=== PATIENT | female | born 1970 | race Two or more races ===

== ENCOUNTER 2020-08-19 11:30 | Inpatient (IN) | payer OTHER ==
[~2020-08-19] VITALS: Ht 152.4 cm; Wt 55.8 kg
[2020-08-19] MEDS ORDERED: WELLBUTRIN XL300 MG PO (13:46)
[2020-08-19] MEDS ORDERED: CLONAZEPAM0.5 MG PO (13:47)
[2020-08-19] MEDS ORDERED: RESTORIL30 MG PO (13:47)
[2020-08-26] MEDS ORDERED: CYCLOBENZAPRINE10 MG (09:36)
[2020-08-26] MEDS ORDERED: SULFASALAZINE500 MG (09:36)
[2020-08-26] MEDS ORDERED: MONTELUKAST SOD10 MG (09:36)
[2020-08-26] MEDS ORDERED: LEFLUNOMIDE20 MG (09:36)
== END 2020-09-02 14:02 | disposition home or self-care (01) | DRG 331 ==
LOC: O/R 08-26 08:28 → SURH 08-26 11:30
PROVIDERS: ADMIT Colon & Rectal Surgery; ATTEND Colon & Rectal Surgery
PROC: 0DTP4ZZ Resection of Rectum, Percutaneous Endoscopic Approach (ICD-10-PCS; 2020-08-26)
PROC: 07BC4ZX Excision of Pelvis Lymphatic, Percutaneous Endoscopic Approach, Diagnostic (ICD-10-PCS; 2020-08-26)
PROC: 0DJD8ZZ Inspection of Lower Intestinal Tract, Via Natural or Artificial Opening Endoscopic (ICD-10-PCS; 2020-08-26)
PROC: 0DBN4ZZ Excision of Sigmoid Colon, Percutaneous Endoscopic Approach (ICD-10-PCS; principal; 2020-08-26 12:30)
DX: C20 Malignant neoplasm of rectum (principal); F32.9 Major depressive disorder, single episode, unspecified; F41.9 Anxiety disorder, unspecified; E87.6 Hypokalemia; R15.9 Full incontinence of feces

== ENCOUNTER 2020-08-24 06:15 | Day surgery (SDC) | payer OTHER ==
[~2020-08-24 06:15] MED LIST: CLONAZEPAM0.5 MG PO; RESTORIL30 MG PO; WELLBUTRIN XL300 MG PO
== END 2020-08-24 10:00 | disposition home or self-care (01) ==
LOC: AMB-ENDOS 06:15
PROVIDERS: ATTEND Colon & Rectal Surgery
DX: K62.89 Other specified diseases of anus and rectum (principal); K64.8 Other hemorrhoids; Z20.822 Contact with and (suspected) exposure to COVID-19

== ENCOUNTER 2020-10-22 12:21 | Emergency (ER) | payer OTHER ==
[~2020-10-22] VITALS: Ht 152.4 cm; Wt 54.4 kg
[~2020-10-22 12:21] MED LIST changes: +CYCLOBENZAPRINE10 MG; +LEFLUNOMIDE20 MG; +MONTELUKAST SOD10 MG; +SULFASALAZINE500 MG
== END 2020-10-22 18:00 | disposition home or self-care (01) ==
LOC: ER 12:21
DX: K94.03 Colostomy malfunction (principal); R10.84 Generalized abdominal pain; K94.09 Other complications of colostomy

== ENCOUNTER 2020-11-23 07:27 | Outpatient (CLI) | payer OTHER | END 2020-11-23 07:32 | disposition home or self-care (01) | LOC: RX STUDY 07:27 | PROVIDERS: ATTEND Colon & Rectal Surgery | DX: C20 Malignant neoplasm of rectum (principal); Z12.11 Encounter for screening for malignant neoplasm of colon; Z93.2 Ileostomy status ==

== ENCOUNTER 2020-11-25 09:45 | Inpatient (IN) | payer OTHER ==
[~2020-11-25] VITALS: Ht 152.4 cm; Wt 55.3 kg
[2020-11-25] MEDS ORDERED: ARAVA10 MG PO (12:34)
[2020-11-25] MEDS ORDERED: FLEXERIL (12:34)
[2020-12-05] MEDS ORDERED: MONTELUKAST SOD10 MG (10:52)
[2020-12-05] MEDS ORDERED: CYCLOBENZAPRINE10 MG (10:52)
[2020-12-05] MEDS ORDERED: SULFASALAZINE500 MG (10:52)
[2020-12-05] MEDS ORDERED: SUCRALFATE1 GM (10:53)
== END 2020-12-19 12:52 | disposition home or self-care (01) | DRG 330 ==
LOC: EDSTATUS 09:45 → SURG 12-05 06:00 → O/R 12-05 06:00 → SURH 12-05 07:00 → SURG 12-05 11:28
PROVIDERS: ADMIT Colon & Rectal Surgery; ATTEND Colon & Rectal Surgery
PROC: 3E0F7SF Introduction of Other Gas into Respiratory Tract, Via Natural or Artificial Opening (ICD-10-PCS; 2020-12-05)
PROC: 0DSB4ZZ Reposition Ileum, Percutaneous Endoscopic Approach (ICD-10-PCS; principal; 2020-12-05 07:00)
PROC: BW2110Z Computerized Tomography (CT Scan) of Abdomen and Pelvis using Low Osmolar Contrast, Unenhanced and Enhanced (ICD-10-PCS; 2020-12-14)
PROC: B24BZZ4 Ultrasonography of Heart with Aorta, Transesophageal (ICD-10-PCS; 2020-12-15)
PROC: BW4GZZZ Ultrasonography of Pelvic Region (ICD-10-PCS; 2020-12-15)
DX: C20 Malignant neoplasm of rectum (principal); A04.72 Enterocolitis due to Clostridium difficile, not specified as recurrent; F41.9 Anxiety disorder, unspecified; F32.9 Major depressive disorder, single episode, unspecified; Z93.2 Ileostomy status

== ENCOUNTER 2020-11-30 06:45 | Day surgery (SDC) | payer OTHER ==
[~2020-11-30 06:45] MED LIST changes: +ARAVA10 MG PO; +FLEXERIL
== END 2020-11-30 12:10 | disposition home or self-care (01) ==
LOC: AMB-ENDOS 06:45
PROVIDERS: ATTEND Colon & Rectal Surgery
DX: K62.89 Other specified diseases of anus and rectum (principal); K64.8 Other hemorrhoids

== ENCOUNTER 2024-06-12 06:05 | Day surgery (SDC) | payer OTHER ==
[~2024-06-12 06:05] MED LIST changes: +SUCRALFATE1 GM
[2024-06-12] MEDS ORDERED: ONDANSETRON HCL 2 MG/ML VIAL IV ONE (09:15)
[2024-06-12] MEDS ORDERED: MIDAZOLAM HCL 2 MG/2 ML VIAL IV ONE (09:15)
[2024-06-12] MEDS ORDERED: fentaNYL CITRATE 50 MCG/ML AMPUL IV PUSH ONE (09:15)
[2024-06-12] MEDS ORDERED: DIPHENHYDRAMINE HCL 50 MG/ML VIAL 1ML IV ONE (09:15)
== END 2024-06-12 10:50 | disposition home or self-care (01) ==
LOC: AMB-ENDOS 06:05
PROVIDERS: ATTEND Colon & Rectal Surgery
DX: K62.5 Hemorrhage of anus and rectum (principal); K63.89 Other specified diseases of intestine; C20 Malignant neoplasm of rectum; R19.5 Other fecal abnormalities; Z88.8 Allergy status to other drugs, medicaments and biological substances